=== PATIENT | male | born 2000 | race Caucasian/White ===

== ENCOUNTER 2020-11-06 12:02 | Emergency (ER) | payer OTHER ==
[~2020-11-06] VITALS: Ht 182.9 cm; Wt 80.7 kg
[2020-11-06 12:30] LABS: HEMOGLOBIN 15.6 gm/dL (14.0-18.0); MCH 29.7 pg (26.0-34.0); MCHC 33.9 g/dL (28.0-37.0); MCV 87.5 fL (80.0-100.0); MPV 8.2 fl. (7.2-11.1); RBC 5.26 mil/uL (4.50-6.00); WBC 8.6 thou/uL (4.0-11.0)
[2020-11-06 12:44] LABS: CREATININE 0.9 mg/dL (0.6-1.3); POTASSIUM 3.6 mmol/L (3.5-5.1)
[2020-11-06 12:49] LABS: ALBUMIN 4.2 g/dL (3.4-5.0); TOTAL BILIRUBIN 0.5 mg/dL (<0.1-1.0); TOTAL PROTEIN 7.9 g/dL (6.4-8.2)
[2020-11-06 13:10] VITALS: BP 123/72
--- NOTE | 2020-11-07 11:12 | EKG ---
[place] [address] ELECTROCARDIOGRAM REPORT Name: PATI HOUGH Room: [facility]#: [id number] Admission: 11/06/20 Attend Phys: Discharge: 11/06/20 Date of : [birth year] Date of Service: 11/06/20 1218 Report #: [id number] THIS REPORT FOR: //name// [facility] ED Test Date: 2020-11-06 Test Time: 12:18:45 Pat Name: PATI HOUGH Department: Room: Gender: Fmd Teacher: RADHA : 2000 Requested By: Edson Colmenares Order Number: [id number] MD: Martell Donaldson Measurements Intervals [place] Rate: 63 P: 62 AK: 186 QRS: 88 QRSD: 90 T: 64 QT: 381 QTc: 390 Interpretive Statements Sinus rhythm ST elevation suggests acute pericarditis Baseline wander in lead(s) V2 No previous ECG available for comparison Electronically Signed On 11-07-2020 11:12:33 CDT by Martell Donaldson [email or web address] <ELECTRONICALLY SIGNED> By: Martell Donaldson MD, [facility] 11/07/20 1112 1218 1218 Martell Donaldson MD, [facility] /EPI
== END 2020-11-06 13:10 | disposition home or self-care (01) ==
LOC: M.ERS 12:02
PROVIDERS: Emergency Medicine Emergency Medical Services
DX: S16.1XXA Strain of muscle, fascia and tendon at neck level, initial encounter (principal); V89.2XXA Person injured in unspecified motor-vehicle accident, traffic, initial encounter; Y93.89 Activity, other specified; Y92.89 Other specified places as the place of occurrence of the external cause; Y99.8 Other external cause status